=== PATIENT | female | born 1950 ===

== ENCOUNTER 2021-04-15 06:00 | Outpatient (RCR) | payer MEDICARE, SELFPAY | END 2021-04-23 23:59 | disposition home or self-care (01) | LOC: GPT 06:00 | PROVIDERS: Referring Provider Orthopaedic Surgery; Visit Provider Orthopaedic Surgery | DX: Z47.1 Aftercare following joint replacement surgery (principal); M70.61 Trochanteric bursitis, right hip; Z96.641 Presence of right artificial hip joint | CPT/HCPCS: 97110; 97161 ==

== ENCOUNTER 2021-04-24 06:00 | Outpatient (RCR) | payer MEDICARE, SELFPAY | END 2021-05-24 23:59 | disposition home or self-care (01) | LOC: GPT 06:00 | PROVIDERS: Referring Provider Orthopaedic Surgery; Visit Provider Orthopaedic Surgery | DX: Z47.1 Aftercare following joint replacement surgery (principal); M70.61 Trochanteric bursitis, right hip | CPT/HCPCS: 97110 ==

== ENCOUNTER 2024-12-23 05:00 | Outpatient (RCR) | payer MEDICARE, SELFPAY | END 2025-01-22 23:59 | disposition home or self-care (01) | LOC: GPT 05:00 | PROVIDERS: Visit Provider Orthopaedic Surgery | DX: Z47.1 Aftercare following joint replacement surgery (principal); Z96.642 Presence of left artificial hip joint | CPT/HCPCS: 97110; 97140; 97161 ==

== ENCOUNTER 2025-01-23 05:00 | Outpatient (RCR) | payer MEDICARE, SELFPAY | END 2025-02-21 23:59 | disposition home or self-care (01) | LOC: GPT 05:00 | PROVIDERS: Visit Provider Orthopaedic Surgery | DX: Z47.1 Aftercare following joint replacement surgery (principal); Z96.652 Presence of left artificial knee joint | CPT/HCPCS: 97110; 97112; 97140; 97530 ==